=== PATIENT | female | born 1935 | race Caucasian/White ===

== ENCOUNTER 2016-10-26 13:04 | Inpatient (IN) | payer MEDICARE, BC ==
--- NOTE | 2016-10-26 19:16 | PCM.HP ---
History of Present Illness - Chief Complaint Chief Complaint: Deconditioning, CHF, anemia Date: 10/26/16 History of Present Illness: is a 81 year old female. who has had multiple admissions in the last 1 month at [facility] with a recent prolonged hospital stay at [facility] for CHF exacerbation with acute on chronic anemia and chronic respiratory failure due to the CHF with fluid overload. She was profoundly weak and prior to this had been living at home independently. She has been progressively worsening over the last month or more and has been following with Dr. Amado Lopez last echo was in his office last month with report of heart "weak" and not pumping well and she was hospitalized for the fluid overload. She currently is still very weak and feels her abdomen is filling up with fluid since they switched her meds 2 days ago at the hospital. She got an iron infusion prior to transfer they had concern for GI bleeding and have held her anticoagulation. She is following with nephrology for her anemia but her last renal function looked good with creatine of 0.6 prior to her discharge. - Review of Systems Constitutional: Fatigue, Malaise, Weakness, No Fever, No Chills Eyes: No Symptoms Ears, Nose, & Throat: No Symptoms Respiratory: Short Of Breath, No Cough Cardiac: Edema, PND, No Chest Pain, No Syncope Abdominal/Gastrointestinal: No Abdominal Pain, No Nausea, No Vomiting, No Diarrhea Genitourinary Symptoms: No Dysuria Musculoskeletal: Arthralgias, Back Pain, No Neck Pain Skin: No Rash Neurological: No Dizziness, No Focal Weakness, No Sensory Changes Psychological: No Symptoms Endocrine: No Symptoms Hematologic/Lymphatic: No Symptoms Immunological/Allergic: No Symptoms Medications & Allergies Home Medications: Home Medication List Albuterol/Ipratropium 3ml Neb* [DUONEB 0.5-3 MG/3 ml Neb] 3 ml IH TID [History Confirmed 10/26/16] Alprazolam [Xanax 0.5 mg] 0.5 mg PO BID 10/26/16 [History Confirmed 10/26/16] Amlodipine Besylate 5 mg [Norvasc 5 mg] 5 mg PO BID 10/26/16 [History Confirmed 10/26/16] Aspirin [Aspirin EC] 81 mg PO DAILY 10/26/16 [History Confirmed 10/26/16] Bumetanide 1 mg [Bumex 1 mg] 2 mg PO DAILY 10/26/16 [History Confirmed ] Epoetin Fausto [Epogen] 10,000 unit IJ 3XW 10/26/16 [History Confirmed 10/26/16] Famotidine 20 mg [Pepcid 20 MG] 40 mg PO BID 10/26/16 [History Confirmed 10/26/16] Gabapentin [Neurontin] 200 mg PO HS 10/26/16 [History Confirmed 10/26/16] Hydrocodone Bit/Acetaminophen [[place] 5/325Mg] 1 tab PO Q4H PRN 10/26/16 [ History Confirmed 10/26/16] Levothyroxine Sodium [Synthroid] 25 mcg PO DAILY 10/26/16 [History Confirmed ] Metoprolol Tartrate 25 mg [Lopressor 25MG Tab] 25 mg PO BID 10/26/16 [ History Confirmed 10/26/16] Nitroglycerin 0.4 mg/Hr [Nitro-Dur 0.4 MG/HR] 0.4 mg TD DAILY 10/26/16 [ History Confirmed 10/26/16] PANTOPRAZOLE 40 mg Tablet [Protonix 40MG Tablet] 40 mg PO DAILY 10/26/16 [ History Confirmed 10/26/16] Ranolazine 500 MG [Ranexa 500 MG] 1,000 mg PO BID 10/26/16 [History Confirmed 10/26/16] Spironolactone 25 mg [Aldactone 25 MG] 25 mg PO DAILY 10/26/16 [History Confirmed 10/26/16] Sucralfate 1 gm [Carafate 1 GM] 1 tab PO DAILY 10/26/16 [History Confirmed 10/26/16] Valsartan/Hydrochlorothiazide [Diovan Hct 160-12.5 mg Tab] 1 each PO BID [History Confirmed 10/26/16] Allergies/Adverse Reactions: Allergies Allergy/AdvReac Type Severity Reaction Status Date / Time No Known Drug Allergies Allergy Verified 10/26/16 18:46 - Past Medical History Past Medical History: Yes Neurological History: Migraines, Peripheral Neuropathy, Stroke, TIA ENT History: Cataracts Cardiac History: Arrhythmia, Congestive Heart Failure, Coronary Artery Disease, High Cholesterol, Hypertension, Myocardial Infarction (NH), Other Respiratory History: CHF, Pneumonia Endocrine Medical History: Diabetes Type II, Hypothyroidism Musculoskelatal History: Osteoarthritis GI Medical History: GERD, Hernia History: Other Pyscho-Social History: No Pertinent History Reproductive Disorders: Other Comment: rt kidney aneurysm; 4 heart stents - Past Surgical History Past Surgical History: Yes Neuro Surgical History: No Pertinent History Cardiac History: Cardiac Catheterization, Cardiac Stent GI Surgical History: Appendectomy, Cholecystectomy, Hernia Repair Genitourinary Surgical Hx: No Pertinent History Musculskeletal Surgical Hx: Joint Replacement Female Surgical History: Hysterectomy Other Surgical History: LEFT KNEE; 11 hernia repairs - Social History Smoking Status: Never smoker Exposure to second hand smoke: No Alcohol: None Drug Use: none - Physical Exam General Appearance: alert, obese Neurologic Exam: alert, oriented x 3, cooperative, normal mood/affect, nml cerebellar function, nml station & gait, sensation nml, No motor deficits Eye Exam: PERRL/EOMI, eyes nml inspection Ears, Nose, Throat Exam: normal ENT inspection, TMs normal, pharynx normal, moist mucous membranes Neck Exam: normal inspection, non-tender, supple, full range of motion Respiratory Exam: normal breath sounds, lungs clear, No respiratory distress Cardiovascular Exam: regular rate/rhythm, normal heart sounds, normal peripheral pulses, murmur Gastrointestinal/Abdomen Exam: soft, normal bowel sounds, distention (fluid wave present), No tenderness, No mass Back Exam: normal inspection, normal range of motion, No CVA tenderness, No vertebral tenderness Extremity Exam: normal inspection, normal range of motion, pelvis stable Skin Exam: normal color, warm, dry, pale, No rash Lymphatic Exam: No adenopathy Assessment/Plan (1) Chronic systolic (congestive) heart failure Current Visit: Yes Status: Acute Assessment & Plan: she is still symptomatic and her overload appears to may be be worsening fluid restriction salt restriction discussed work on follow i and o diuretics 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 she Follows with Alex Gómez and Dr. Amado Lopez as outpatient Code(s): I50.22 - CHRONIC SYSTOLIC (CONGESTIVE) HEART FAILURE (2) Generalized weakness Current Visit: Yes Status: Acute Code(s): R53.1 - WEAKNESS (3) Volume overload Current Visit: Yes Status: Acute Code(s): E87.70 - FLUID OVERLOAD, UNSPECIFIED (4) Anemia Current Visit: Yes Status: Acute Code(s): D64.9 - ANEMIA, UNSPECIFIED (5) Hypertension Current Visit: Yes Status: Acute Code(s): I10 - ESSENTIAL (PRIMARY) HYPERTENSION (6) Diabetes Current Visit: Yes Status: Acute Code(s): E11.9 - TYPE 2 DIABETES MELLITUS WITHOUT COMPLICATIONS (7) Coronary arteriosclerosis Current Visit: Yes Status: Acute (8) Chronic respiratory failure Current Visit: Yes Status: Acute Code(s): J96.10 - CHRONIC RESPIRATORY FAILURE, UNSP W HYPOXIA OR HYPERCAPNIA (9) Afib Current Visit: Yes Status: Acute Code(s): I48.91 - UNSPECIFIED ATRIAL FIBRILLATION (10) GERD (gastroesophageal reflux disease) Current Visit: Yes Status: Acute Code(s): K21.9 - GASTRO-ESOPHAGEAL REFLUX DISEASE WITHOUT ESOPHAGITIS
[2016-10-26] MEDS: NORCO 5/325 MG PO PRN (21:56)
[2016-10-26] MEDS: Neurontin 100 MG PO SCH (21:57)
[2016-10-26] MEDS: xanAX 0.5 MG PO SCH (21:57)
[2016-10-26] MEDS: NORVASC 5 MG PO SCH (21:57)
[2016-10-26] MEDS: Pepcid 20 MG PO SCH (21:57)
[2016-10-26] MEDS: Lopressor 25MG Tab PO SCH (21:58)
[2016-10-26] MEDS: Ranexa 500 MG PO SCH (21:58)
[2016-10-26] MEDS ORDERED: DIOVAN PO SCH ×2 (22:00)
[2016-10-26] MEDS ORDERED: HYDRODIURIL PO SCH ×2 (22:00)
[2016-10-27] MEDS ORDERED: DUONEB 0.5-3 MG/3 ml Neb IH SCH (07:00)
[2016-10-27] MEDS ORDERED: Nitro-Dur 0.4 MG/HR TD PRN (08:00)
[2016-10-27] MEDS ORDERED: DUONEB 0.5-3 MG/3 ml Neb IH PRN (09:14)
[2016-10-27] MEDS: Ranexa 500 MG PO SCH ×2 (09:37→22:29)
[2016-10-27] MEDS: DIOVAN 80 MG PO SCH ×2 (09:38→22:30)
[2016-10-27] MEDS: xanAX 0.5 MG PO SCH ×2 (09:38→22:50)
[2016-10-27] MEDS: NORVASC 5 MG PO SCH ×2 (09:38→22:29)
[2016-10-27] MEDS: hydroDIURIL 25 MG PO SCH ×2 (09:39→22:30)
[2016-10-27] MEDS: Pepcid 20 MG PO SCH ×3 (09:39→22:29)
[2016-10-27] MEDS: Lopressor 25MG Tab PO SCH ×2 (09:39→22:29)
[2016-10-27] MEDS: ECOTRIN 81 MG PO SCH (09:47)
[2016-10-27] MEDS: Carafate 1 GM PO SCH (09:47)
[2016-10-27] MEDS: SYNTHROID 25 MCG PO SCH (09:47)
[2016-10-27] MEDS: BUMEX 1 MG PO SCH (09:47)
[2016-10-27] MEDS: Aldactone 25 MG PO SCH (09:48)
[2016-10-27] MEDS: Protonix 40MG Tablet PO SCH (09:48)
[2016-10-27] MEDS ORDERED: PREVNAR 13 SYRINGE IM ONE (10:00)
[2016-10-27] MEDS ORDERED: Aplisol ID SCH (10:00)
[2016-10-27] MEDS: Neurontin 100 MG PO SCH (22:29)
[2016-10-28] MEDS: Carafate 1 GM PO SCH (08:15)
[2016-10-28] MEDS: Ranexa 500 MG PO SCH ×2 (09:27→21:23)
[2016-10-28] MEDS: DIOVAN 80 MG PO SCH ×2 (09:27→21:22)
[2016-10-28] MEDS: Aldactone 25 MG PO SCH (09:28)
[2016-10-28] MEDS: hydroDIURIL 25 MG PO SCH ×2 (09:28→21:22)
[2016-10-28] MEDS: ECOTRIN 81 MG PO SCH (09:28)
[2016-10-28] MEDS: Lopressor 25MG Tab PO SCH ×2 (09:28→21:22)
[2016-10-28] MEDS: BUMEX 1 MG PO SCH (09:28)
[2016-10-28] MEDS: xanAX 0.5 MG PO SCH ×2 (09:29→21:24)
[2016-10-28] MEDS: Protonix 40MG Tablet PO SCH (09:29)
[2016-10-28] MEDS: SYNTHROID 25 MCG PO SCH (09:29)
[2016-10-28] MEDS: NORVASC 5 MG PO SCH ×2 (09:29→21:23)
[2016-10-28] MEDS: Pepcid 20 MG PO SCH ×2 (09:29→21:23)
[2016-10-28] MEDS: MILK OF MAGNESIA 30 ML PO PRN (11:44)
[2016-10-28] MEDS: Neurontin 100 MG PO SCH (21:23)
[2016-10-28] MEDS: NORCO 5/325 MG PO PRN (21:24)
[2016-10-29 05:51] LABS: Mean Cell Volume 76.7 fl (78-100); Mean Corpuscular Hemoglobin 21.5 pg (26-32); Mean Platelet Volume 9.9 fl (6-9.5); Platelet Count 177 K/mm3 (150-450); Red Blood Count 3.44 M/mm3 (4.1-5.4); Red Cell Distribution Width 21.4 % (11.5-14.0); White Blood Count 4.6 K/mm3 (4.0-10.5)
[2016-10-29 05:57] LABS: ALBUMIN 3.3 g/dL (3.4-5.0); ALKALINE PHOSPHATASE 60 U/L (46-116); ANION GAP 10.3 MEQ/L (5-15); BILIRUBIN,TOTAL 0.5 mg/dL (0.2-1.0); BLOOD UREA NITROGEN 10 mg/dL (9-20); CHLORIDE 98 mEq/L (98-107); Carbon Dioxide 34.1 mEq/L (21-32); Glucose 87 MG/DL (70-110); Potassium 3.9 mEq/L (3.5-5.1); SGOT/AST 20 U/L (15-37); SGPT/ALT 13 U/L (12-78); SODIUM 139 mEq/L (136-145); Total Protein 6.6 gm/dL (6.4-8.2)
[2016-10-29] MEDS: Carafate 1 GM PO SCH (07:35)
[2016-10-29] MEDS: NORCO 5/325 MG PO PRN ×2 (07:38→21:36)
[2016-10-29] MEDS: DIOVAN 80 MG PO SCH ×2 (09:24→21:38)
[2016-10-29] MEDS: BUMEX 1 MG PO SCH (09:24)
[2016-10-29] MEDS: Pepcid 20 MG PO SCH ×2 (09:25→21:34)
[2016-10-29] MEDS: NORVASC 5 MG PO SCH ×2 (09:26→21:38)
[2016-10-29] MEDS: Aldactone 25 MG PO SCH ×2 (09:26→21:36)
[2016-10-29] MEDS: Ranexa 500 MG PO SCH ×2 (09:27→21:33)
[2016-10-29] MEDS: SYNTHROID 25 MCG PO SCH (09:27)
[2016-10-29] MEDS: Lopressor 25MG Tab PO SCH ×2 (09:28→21:33)
[2016-10-29] MEDS: ECOTRIN 81 MG PO SCH (09:28)
[2016-10-29] MEDS: hydroDIURIL 25 MG PO SCH ×2 (09:28→21:33)
[2016-10-29] MEDS: Protonix 40MG Tablet PO SCH (09:37)
[2016-10-29] MEDS ORDERED: Klor Con 10 MEQ PO ONE (10:00)
[2016-10-29] MEDS ORDERED: Zaroxolyn 2.5 MG PO ONE (10:00)
[2016-10-29] MEDS: xanAX 0.5 MG PO SCH ×2 (16:42→21:38)
[2016-10-29] MEDS: Neurontin 100 MG PO SCH (21:38)
[2016-10-30] MEDS: NORCO 5/325 MG PO PRN ×2 (05:03→21:52)
[2016-10-30] MEDS: Carafate 1 GM PO SCH (07:53)
[2016-10-30] MEDS: Nitro-Dur 0.4 MG/HR TD SCH (07:53)
[2016-10-30] MEDS: hydroDIURIL 25 MG PO SCH ×2 (09:22→21:55)
[2016-10-30] MEDS: Pepcid 20 MG PO SCH ×2 (09:22→21:54)
[2016-10-30] MEDS: DIOVAN 80 MG PO SCH ×2 (09:22→21:54)
[2016-10-30] MEDS: SYNTHROID 25 MCG PO SCH (09:22)
[2016-10-30] MEDS: BUMEX 1 MG PO SCH (09:24)
[2016-10-30] MEDS: NORVASC 5 MG PO SCH ×2 (09:24→21:54)
[2016-10-30] MEDS: Protonix 40MG Tablet PO SCH (09:24)
[2016-10-30] MEDS: Aldactone 25 MG PO SCH ×2 (09:24→21:54)
[2016-10-30] MEDS: Ranexa 500 MG PO SCH ×2 (09:24→21:53)
[2016-10-30] MEDS: ECOTRIN 81 MG PO SCH (09:25)
[2016-10-30] MEDS: Lopressor 25MG Tab PO SCH ×2 (09:25→21:54)
[2016-10-30] MEDS: xanAX 0.5 MG PO SCH ×2 (09:29→21:54)
[2016-10-30] MEDS: Neurontin 100 MG PO SCH (21:54)
[2016-10-31] MEDS: Carafate 1 GM PO SCH (07:55)
[2016-10-31] MEDS: Nitro-Dur 0.4 MG/HR TD SCH (07:55)
[2016-10-31] MEDS: DIOVAN 80 MG PO SCH ×2 (09:52→21:50)
[2016-10-31] MEDS: ECOTRIN 81 MG PO SCH (09:53)
[2016-10-31] MEDS: Protonix 40MG Tablet PO SCH (09:53)
[2016-10-31] MEDS: Ranexa 500 MG PO SCH ×2 (09:53→21:49)
[2016-10-31] MEDS: hydroDIURIL 25 MG PO SCH ×2 (09:53→21:49)
[2016-10-31] MEDS: Lopressor 25MG Tab PO SCH ×2 (09:54→21:49)
[2016-10-31] MEDS: Aldactone 25 MG PO SCH ×2 (09:54→21:50)
[2016-10-31] MEDS: SYNTHROID 50 MCG PO SCH (09:54)
[2016-10-31] MEDS: Pepcid 20 MG PO SCH ×2 (09:54→21:49)
[2016-10-31] MEDS: BUMEX 1 MG PO SCH (09:54)
[2016-10-31] MEDS: NORVASC 5 MG PO SCH ×2 (09:54→21:49)
[2016-10-31] MEDS: xanAX 0.5 MG PO SCH ×2 (09:57→21:50)
[2016-10-31] MEDS: Neurontin 100 MG PO SCH (21:49)
[2016-10-31] MEDS: NORCO 5/325 MG PO PRN (21:50)
[2016-11-01 05:51] LABS: Mean Cell Volume 76.3 fl (78-100); Mean Platelet Volume 9.5 fl (6-9.5); Platelet Count 235 K/mm3 (150-450); Red Blood Count 3.79 M/mm3 (4.1-5.4); Red Cell Distribution Width 22.7 % (11.5-14.0); White Blood Count 4.5 K/mm3 (4.0-10.5)
[2016-11-01 05:52] LABS: Mean Corpuscular Hemoglobin 22.1 pg (26-32)
[2016-11-01 06:09] LABS: ANION GAP 13.4 MEQ/L (5-15); Carbon Dioxide 31.6 mEq/L (21-32); Potassium 3.9 mEq/L (3.5-5.1)
[2016-11-01] MEDS: Nitro-Dur 0.4 MG/HR TD SCH (07:27)
[2016-11-01] MEDS: Carafate 1 GM PO SCH (07:28)
[2016-11-01] MEDS: Protonix 40MG Tablet PO SCH (10:12)
[2016-11-01] MEDS: hydroDIURIL 25 MG PO SCH ×2 (10:13→21:50)
[2016-11-01] MEDS: SYNTHROID 50 MCG PO SCH (10:14)
[2016-11-01] MEDS: Lopressor 25MG Tab PO SCH ×2 (10:14→21:51)
[2016-11-01] MEDS: Aldactone 25 MG PO SCH ×2 (10:14→21:50)
[2016-11-01] MEDS: Ranexa 500 MG PO SCH ×2 (10:15→21:51)
[2016-11-01] MEDS: Pepcid 20 MG PO SCH ×2 (10:15→21:51)
[2016-11-01] MEDS: ECOTRIN 81 MG PO SCH (10:15)
[2016-11-01] MEDS: BUMEX 1 MG PO SCH (10:16)
[2016-11-01] MEDS: DIOVAN 80 MG PO SCH ×2 (10:16→21:50)
[2016-11-01] MEDS: xanAX 0.5 MG PO SCH ×2 (10:20→21:52)
[2016-11-01] MEDS: NORCO 5/325 MG PO PRN (21:51)
[2016-11-01] MEDS: Neurontin 100 MG PO SCH (21:51)
[2016-11-02] MEDS: BUMEX 1 MG PO SCH (07:52)
[2016-11-02] MEDS: Ranexa 500 MG PO SCH ×2 (07:52→21:41)
[2016-11-02] MEDS: Aldactone 25 MG PO SCH ×2 (07:53→21:40)
[2016-11-02] MEDS: hydroDIURIL 25 MG PO SCH ×2 (07:53→21:39)
[2016-11-02] MEDS: Protonix 40MG Tablet PO SCH (07:53)
[2016-11-02] MEDS: Pepcid 20 MG PO SCH ×2 (07:53→21:41)
[2016-11-02] MEDS: DIOVAN 80 MG PO SCH ×2 (07:53→21:41)
[2016-11-02] MEDS: ECOTRIN 81 MG PO SCH (07:53)
[2016-11-02] MEDS: SYNTHROID 50 MCG PO SCH (07:54)
[2016-11-02] MEDS: xanAX 0.5 MG PO SCH ×2 (07:54→21:39)
[2016-11-02] MEDS: Nitro-Dur 0.4 MG/HR TD SCH (07:54)
[2016-11-02] MEDS: Carafate 1 GM PO SCH (07:54)
[2016-11-02] MEDS: Lopressor 25MG Tab PO SCH ×2 (07:54→21:42)
[2016-11-02] MEDS ORDERED: Venofer 100 MG/5 ML IV SCH (14:00)
[2016-11-02] MEDS ORDERED: Venofer 100 MG/5 ML*** 300 MG in Sodium Chloride 0.9% 250 ML 250 ML IV SCH (16:00)
[2016-11-02] MEDS: NORCO 5/325 MG PO PRN ×2 (16:26→21:40)
[2016-11-02] MEDS: MILK OF MAGNESIA 30 ML PO PRN (21:38)
[2016-11-02] MEDS: Neurontin 100 MG PO SCH (21:39)
[2016-11-03] MEDS: Nitro-Dur 0.4 MG/HR TD SCH (08:05)
[2016-11-03] MEDS: Carafate 1 GM PO SCH (08:05)
[2016-11-03] MEDS: Ranexa 500 MG PO SCH ×2 (09:22→21:17)
[2016-11-03] MEDS: SYNTHROID 50 MCG PO SCH (09:23)
[2016-11-03] MEDS: BUMEX 1 MG PO SCH (09:23)
[2016-11-03] MEDS: Aldactone 25 MG PO SCH ×2 (09:23→21:15)
[2016-11-03] MEDS: hydroDIURIL 25 MG PO SCH ×2 (09:23→21:16)
[2016-11-03] MEDS: Lopressor 25MG Tab PO SCH ×2 (09:24→21:17)
[2016-11-03] MEDS: Pepcid 20 MG PO SCH ×2 (09:24→21:17)
[2016-11-03] MEDS: DIOVAN 80 MG PO SCH ×2 (09:24→21:15)
[2016-11-03] MEDS: Protonix 40MG Tablet PO SCH (09:24)
[2016-11-03] MEDS: ECOTRIN 81 MG PO SCH (09:24)
[2016-11-03] MEDS: xanAX 0.5 MG PO SCH ×2 (09:25→21:14)
[2016-11-03] MEDS: Neurontin 100 MG PO SCH (21:15)
[2016-11-03] MEDS: NORCO 5/325 MG PO PRN (21:15)
[2016-11-04] MEDS: NORCO 5/325 MG PO PRN ×4 (02:57→21:54)
[2016-11-04] MEDS: Nitro-Dur 0.4 MG/HR TD SCH (08:10)
[2016-11-04] MEDS: Carafate 1 GM PO SCH (08:10)
[2016-11-04] MEDS: Ranexa 500 MG PO SCH ×2 (09:42→21:55)
[2016-11-04] MEDS: DIOVAN 80 MG PO SCH ×2 (09:42→21:56)
[2016-11-04] MEDS: hydroDIURIL 25 MG PO SCH ×2 (09:42→21:55)
[2016-11-04] MEDS: Pepcid 20 MG PO SCH ×2 (09:43→21:54)
[2016-11-04] MEDS: ECOTRIN 81 MG PO SCH (09:43)
[2016-11-04] MEDS: Lopressor 25MG Tab PO SCH ×2 (09:43→21:55)
[2016-11-04] MEDS: BUMEX 1 MG PO SCH (09:44)
[2016-11-04] MEDS: Aldactone 25 MG PO SCH ×2 (09:44→21:56)
[2016-11-04] MEDS: SYNTHROID 50 MCG PO SCH (09:44)
[2016-11-04] MEDS: Protonix 40MG Tablet PO SCH (09:44)
[2016-11-04] MEDS: xanAX 0.5 MG PO SCH ×2 (09:46→21:56)
[2016-11-04] MEDS: Neurontin 100 MG PO SCH (21:55)
[2016-11-05] MEDS: Nitro-Dur 0.4 MG/HR TD SCH (07:58)
[2016-11-05] MEDS: Carafate 1 GM PO SCH (07:58)
[2016-11-05] MEDS ORDERED: Senokot-S Tablet PO PRN (08:47)
[2016-11-05] MEDS: hydroDIURIL 25 MG PO SCH ×2 (09:21→21:57)
[2016-11-05] MEDS: Aldactone 25 MG PO SCH ×2 (09:22→21:58)
[2016-11-05] MEDS: ECOTRIN 81 MG PO SCH (09:22)
[2016-11-05] MEDS: SYNTHROID 50 MCG PO SCH (09:22)
[2016-11-05] MEDS: Lopressor 25MG Tab PO SCH ×2 (09:22→21:58)
[2016-11-05] MEDS: Protonix 40MG Tablet PO SCH (09:22)
[2016-11-05] MEDS: BUMEX 1 MG PO SCH (09:22)
[2016-11-05] MEDS: DIOVAN 80 MG PO SCH ×2 (09:22→21:58)
[2016-11-05] MEDS: Pepcid 20 MG PO SCH ×2 (09:22→21:59)
[2016-11-05] MEDS: Ranexa 500 MG PO SCH ×2 (09:23→21:57)
[2016-11-05] MEDS: xanAX 0.5 MG PO SCH ×2 (09:23→21:58)
[2016-11-05] MEDS: Neurontin 100 MG PO SCH (21:58)
[2016-11-05] MEDS: NORCO 5/325 MG PO PRN (21:58)
[2016-11-06] MEDS: Nitro-Dur 0.4 MG/HR TD SCH (08:12)
[2016-11-06] MEDS: Carafate 1 GM PO SCH (08:12)
[2016-11-06] MEDS: BUMEX 1 MG PO SCH (09:19)
[2016-11-06] MEDS: Lopressor 25MG Tab PO SCH ×2 (09:19→21:39)
[2016-11-06] MEDS: Protonix 40MG Tablet PO SCH (09:20)
[2016-11-06] MEDS: ECOTRIN 81 MG PO SCH (09:20)
[2016-11-06] MEDS: Aldactone 25 MG PO SCH ×2 (09:20→21:41)
[2016-11-06] MEDS: hydroDIURIL 25 MG PO SCH ×2 (09:20→21:40)
[2016-11-06] MEDS: SYNTHROID 50 MCG PO SCH (09:20)
[2016-11-06] MEDS: Pepcid 20 MG PO SCH ×2 (09:20→21:40)
[2016-11-06] MEDS: DIOVAN 80 MG PO SCH ×2 (09:20→21:40)
[2016-11-06] MEDS: xanAX 0.5 MG PO SCH ×2 (09:21→21:42)
[2016-11-06] MEDS: Ranexa 500 MG PO SCH ×2 (09:22→21:40)
[2016-11-06] MEDS ORDERED: TYLENOL 325 MG PO PRN (16:29)
[2016-11-06] MEDS: Neurontin 100 MG PO SCH (21:40)
[2016-11-06] MEDS: NORCO 5/325 MG PO PRN (21:42)
[2016-11-07] MEDS: Carafate 1 GM PO SCH (07:56)
[2016-11-07] MEDS: Nitro-Dur 0.4 MG/HR TD SCH (07:56)
[2016-11-07] MEDS: BUMEX 1 MG PO SCH (09:05)
[2016-11-07] MEDS: Pepcid 20 MG PO SCH ×2 (09:06→22:13)
[2016-11-07] MEDS: hydroDIURIL 25 MG PO SCH ×2 (09:06→22:12)
[2016-11-07] MEDS: Aldactone 25 MG PO SCH ×2 (09:06→22:13)
[2016-11-07] MEDS: DIOVAN 80 MG PO SCH ×2 (09:06→22:12)
[2016-11-07] MEDS: SYNTHROID 50 MCG PO SCH (09:06)
[2016-11-07] MEDS: Ranexa 500 MG PO SCH ×2 (09:07→22:13)
[2016-11-07] MEDS: ECOTRIN 81 MG PO SCH (09:07)
[2016-11-07] MEDS: Lopressor 25MG Tab PO SCH ×2 (09:07→22:11)
[2016-11-07] MEDS: Protonix 40MG Tablet PO SCH (09:07)
[2016-11-07] MEDS: xanAX 0.5 MG PO SCH ×2 (09:11→22:12)
[2016-11-07] MEDS ORDERED: Aplisol ID SCH (10:00)
[2016-11-07] MEDS: NORCO 5/325 MG PO PRN (22:11)
[2016-11-07] MEDS: Neurontin 100 MG PO SCH (22:12)
[2016-11-08 05:08] LABS: Mean Cell Volume 75.7 fl (78-100); Mean Corpuscular Hemoglobin 22.8 pg (26-32); Mean Platelet Volume 8.8 fl (6-9.5); Platelet Count 277 K/mm3 (150-450); Red Blood Count 4.16 M/mm3 (4.1-5.4); Red Cell Distribution Width 23.1 % (11.5-14.0); White Blood Count 4.7 K/mm3 (4.0-10.5)
[2016-11-08] MEDS: Carafate 1 GM PO SCH (08:16)
[2016-11-08] MEDS: Nitro-Dur 0.4 MG/HR TD SCH (08:16)
[2016-11-08] MEDS: Protonix 40MG Tablet PO SCH (09:39)
[2016-11-08] MEDS: BUMEX 1 MG PO SCH (09:39)
[2016-11-08] MEDS: ECOTRIN 81 MG PO SCH (09:39)
[2016-11-08] MEDS: Ranexa 500 MG PO SCH ×2 (09:39→21:37)
[2016-11-08] MEDS: Pepcid 20 MG PO SCH ×2 (09:39→21:39)
[2016-11-08] MEDS: hydroDIURIL 25 MG PO SCH ×2 (09:40→21:38)
[2016-11-08] MEDS: SYNTHROID 50 MCG PO SCH (09:40)
[2016-11-08] MEDS: DIOVAN 80 MG PO SCH ×2 (09:40→21:38)
[2016-11-08] MEDS: Aldactone 25 MG PO SCH ×2 (09:40→21:37)
[2016-11-08] MEDS: Lopressor 25MG Tab PO SCH ×2 (09:40→21:38)
[2016-11-08] MEDS: xanAX 0.5 MG PO SCH ×2 (09:45→21:38)
[2016-11-08 19:35] VITALS: BP 136/63; PULSE 62; O2SAT 98
[2016-11-08] MEDS: Neurontin 100 MG PO SCH (21:37)
[2016-11-08] MEDS: NORCO 5/325 MG PO PRN (21:39)
[2016-11-09 05:40] LABS: ANION GAP 12.1 MEQ/L (5-15); Carbon Dioxide 30.4 mEq/L (21-32); Potassium 4.4 mEq/L (3.5-5.1)
[2016-11-09] MEDS: NORCO 5/325 MG PO PRN (06:19)
[2016-11-09] MEDS: Nitro-Dur 0.4 MG/HR TD SCH (07:38)
[2016-11-09] MEDS: Carafate 1 GM PO SCH (07:39)
[2016-11-09] MEDS ORDERED: Venofer 100 MG/5 ML*** 300 MG in Sodium Chloride 0.9% 250 ML 250 ML IV SCH (08:00)
[2016-11-09] MEDS ORDERED: hydroDIURIL 25 MG PO SCH (10:00)
[2016-11-09] MEDS: ECOTRIN 81 MG PO SCH (10:21)
[2016-11-09] MEDS: Protonix 40MG Tablet PO SCH (10:22)
[2016-11-09] MEDS: BUMEX 1 MG PO SCH (10:22)
[2016-11-09] MEDS: Lopressor 25MG Tab PO SCH (10:23)
[2016-11-09] MEDS: xanAX 0.5 MG PO SCH (10:23)
[2016-11-09] MEDS: DIOVAN 80 MG PO SCH (10:23)
[2016-11-09] MEDS: SYNTHROID 50 MCG PO SCH (10:23)
[2016-11-09] MEDS: Aldactone 25 MG PO SCH (10:23)
[2016-11-09] MEDS: Pepcid 20 MG PO SCH (10:23)
[2016-11-09] MEDS: Ranexa 500 MG PO SCH (10:23)
--- NOTE | 2016-11-09 12:21 | PCM.DS ---
Discharge Summary Date of Admission: 10/26/16 18:09 Date of Discharge: 11/09/2016 Admitting Physician: REGINALD COFFMAN Primary Care Provider: REGINALD COFFMAN Allergies Allergies No Known Drug Allergies Allergy (Verified 10/26/16 18:46) Hospital Summary - Hospital Course Hospital Course: she was admitted for volume overload, chf, ckd and severe anemia to [facility] where she was treated with medical therapy but was extremely deconditioned and was sent to [facility] for Swing Bed rehab. We continued her rehab therapy and continued her diuretics. Her blood pressure medications were adjusted as she was having hypotension and her amlodipine was stopped and the aldactone was increased to bid. this helped her swelling and her bp remained controlled. Her breathing improved drastically and her oxygen requirement lessened. She progressed well with therapy as well. She received iron infusions on Fridays and her hgb responded well increasing by 1 pt per week to 9 at discharge from 7 on presentation. Her mood and energy level was much better. She has home health services set up and is thus set up for discharge to home with continued therapy and follow up for her infusions and follow up with nephrology and cardiology. She did begin to have renal impairment and hyponatremia on the day of discharge from the diuresis and her spironolactone dose was decreased back down to daily. She had been on fluid and salt restrition since arrival this will likely change when she resumes her home diet and will f/u the level next week. - Vitals & Intake/Output Vital Signs: Vital Signs Temperature 97.8 F 11/08/16 19:34 Pulse Rate 62 11/08/16 19:34 Respiratory Rate 18 11/08/16 19:34 Blood Pressure 136/63 11/08/16 19:34 O2 Sat by Pulse Oximetry 98 11/08/16 19:34 Oxygen-Last Documented O2 Percentage 1 Liter = 24% Intake & Output: Intake & Output 11/07/16 11/08/16 11/09/16 11/10/16 11:59 11:59 11:59 11:59 Intake Total 690 629 3312 Output Total 100 Balance 006 614 9408 Weight 78.608 kg 78.925 kg 79.152 kg - Lab Result Diagrams: 11/08/16 04:30 11/09/16 05:13 Lab Results-Last 24 Hrs: Accuchecks Date 11/09/16 Time 07:00 Accucheck Value: 115 Lab Results-Last 24 Hours 11/09/16 Range/Units 05:13 Sodium 127 L (136-145) mEq/L Potassium 4.4 (3.5-5.1) mEq/L Chloride 89 L (98-107) mEq/L Carbon Dioxide 30.4 (21-32) mEq/L Anion Gap 12.1 (5-15) MEQ/L BUN 35 H (9-20) mg/dL Creatinine 1.66 H (0.55-1.30) mg/dl Estimated GFR 32 ML/MIN Glucose 116 H (70-110) MG/DL Calcium 9.7 (8.5-10.1) mg/dL Micro Results-Entire Visit: Accuchecks Date 11/09/16 Time 07:00 Accucheck Value: 115 - Procedures and Test Procedures and Tests throughout Hospitalization: Therapy Orders & Screens 10/26/16 18:21 PT Eval & Treat ( Order) Evaluate: Yes Treat: Yes Reason for Eval:: Deconditioning Diagnosis: Deconditioning r/t pneumonia, CHF, anemia 10/26/16 22:37 Oxygen NASAL CANNULA 3 lpm Comment: O2 TO KEEP SPO2 >92% Diagnosis: Deconditioning, CHF, anemia Respiratory Therapy Consult ROUTINE Comment: Reason For Exam: Diagnosis: Deconditioning, CHF, anemia 10/27/16 09:15 Respiratory Nebulizer PRN Comment: Diagnosis: Deconditioning, CHF, anemia 10/27/16 09:16 Incentive Spirometry Assessmen UD Comment: Diagnosis: Deconditioning, CHF, anemia Discharge Exam General Appearance: no apparent distress, alert Neurologic Exam: alert, oriented x 3, cooperative, normal mood/affect, nml cerebellar function, sensation nml, No motor deficits Skin Exam: normal color, warm, dry Eye Exam: PERRL, EOMI, eyes nml inspection Ears, Nose, Throat Exam: normal ENT inspection, pharynx normal, moist mucous membranes Neck Exam: normal inspection, non-tender, supple, full range of motion Respiratory Exam: normal breath sounds, crackles/rales, No respiratory distress Cardiovascular Exam: regular rate/rhythm, normal heart sounds, murmur Gastrointestinal/Abdomen Exam: soft, No tenderness, No mass Extremity Exam: normal inspection, normal range of motion Back Exam: normal inspection, normal range of motion, No CVA tenderness, No vertebral tenderness Pelvic Exam: deferred Rectal Exam: deferred Final Diagnosis/Problem List - Final Discharge Diagnosis/Problem (1) Chronic systolic (congestive) heart failure Status: Acute (2) Generalized weakness Status: Acute (3) Volume overload Status: Acute (4) Anemia Status: Acute (5) Hypertension Status: Acute (6) Diabetes Status: Acute (7) Coronary arteriosclerosis Status: Acute (8) Chronic respiratory failure Status: Acute (9) Afib Status: Acute (10) GERD (gastroesophageal reflux disease) Status: Acute - Discharge Discharge Date: 11/09/16 Disposition: HOME HEALTH SERVICE Condition: Stable Prescriptions: Continue Hydrocodone Bit/Acetaminophen [[place] 5/325Mg] 1 tab PO Q4H PRN PRN Reason: Pain Nitroglycerin 0.4 mg/Hr [Nitro-Dur 0.4 MG/HR] 0.4 mg TD DAILY Alprazolam [Xanax 0.5 mg] 0.5 mg PO BID Ranolazine 500 MG [Ranexa 500 MG] 1,000 mg PO BID PANTOPRAZOLE 40 mg Tablet [Protonix 40MG Tablet] 40 mg PO DAILY Famotidine 20 mg [Pepcid 20 MG] 40 mg PO BID Gabapentin [Neurontin] 200 mg PO HS Metoprolol Tartrate 25 mg [Lopressor 25MG Tab] 50 mg PO BID Albuterol/Ipratropium 3ml Neb* [DUONEB 0.5-3 MG/3 ml Neb] 3 ml IH TID Valsartan/Hydrochlorothiazide [Diovan Hct 160-12.5 mg Tab] 1 each PO BID Sucralfate 1 gm [Carafate 1 GM] 1 tab PO BID Aspirin [Aspirin EC] 81 mg PO DAILY Glyburide 2.5 mg PO DAILY Cranberry Extract [Cranberry] 500 mg PO DAILY Nitroglycerin 0.4 mg Tablet [Nitrostat 0.4 MG Tablet] 0.4 mg SL Q1H PRN PRN Reason: Chest Pain Spironolactone 25 mg [Aldactone 25 MG] 25 mg PO DAILY #60 Epoetin Fausto [Epogen] 10,000 unit IJ 3XW #0 Iron Sucrose Complex [Venofer] 300 mg IV WEEKLY #0 Bumetanide 1 mg [Bumex 1 mg] 2 mg PO DAILY #0 tablet Changed Levothyroxine Sodium [Synthroid] 50 mcg PO DAILY #60 Discontinued Amlodipine Besylate 5 mg [Norvasc 5 mg] 5 mg PO BID Meloxicam 7.5 mg [Mobic 7.5 MG] 15 mg PO DAILY Apixaban [Eliquis] 2.5 mg PO BID Instructions: Heart-Healthy Diet, Heart Failure, Muscle Weakness Additional Instructions: follow up with the [facility] in [place] after discharge. Scheduled for . 113 Records sent to [facility] via fax. pt. is to arrive 15 min. Prior to appt. for paperwork. Chris Lakhani. [facility] WILL CALL YOU TO SCHEDULE YOUR NEXT VISIT. YOU MAY REACH THEM AT EXT [id number]. Follow up with: REGINALD COFFMAN [Primary Care Provider] - 11/16/16 1:00 pm Forms: CHF Discharge Instructions, Patient Portal Information
--- NOTE | 2016-11-09 12:26 | PCM.DCORD ---
- Discharge Discharge Date: 11/09/16 Disposition: HOME HEALTH SERVICE Condition: Stable Prescriptions: Continue Hydrocodone Bit/Acetaminophen [[place] 5/325Mg] 1 tab PO Q4H PRN PRN Reason: Pain Nitroglycerin 0.4 mg/Hr [Nitro-Dur 0.4 MG/HR] 0.4 mg TD DAILY Alprazolam [Xanax 0.5 mg] 0.5 mg PO BID Ranolazine 500 MG [Ranexa 500 MG] 1,000 mg PO BID PANTOPRAZOLE 40 mg Tablet [Protonix 40MG Tablet] 40 mg PO DAILY Famotidine 20 mg [Pepcid 20 MG] 40 mg PO BID Gabapentin [Neurontin] 200 mg PO HS Metoprolol Tartrate 25 mg [Lopressor 25MG Tab] 50 mg PO BID Albuterol/Ipratropium 3ml Neb* [DUONEB 0.5-3 MG/3 ml Neb] 3 ml IH TID Valsartan/Hydrochlorothiazide [Diovan Hct 160-12.5 mg Tab] 1 each PO BID Sucralfate 1 gm [Carafate 1 GM] 1 tab PO BID Bumetanide 1 mg [Bumex 1 mg] 2 mg PO DAILY Aspirin [Aspirin EC] 81 mg PO DAILY Glyburide 2.5 mg PO DAILY Cranberry Extract [Cranberry] 500 mg PO DAILY Nitroglycerin 0.4 mg Tablet [Nitrostat 0.4 MG Tablet] 0.4 mg SL Q1H PRN PRN Reason: Chest Pain Spironolactone 25 mg [Aldactone 25 MG] 25 mg PO DAILY #60 Epoetin Fausto [Epogen] 10,000 unit IJ 3XW #0 Iron Sucrose Complex [Venofer] 300 mg IV WEEKLY #0 Changed Levothyroxine Sodium [Synthroid] 50 mcg PO DAILY #60 Discontinued Amlodipine Besylate 5 mg [Norvasc 5 mg] 5 mg PO BID Meloxicam 7.5 mg [Mobic 7.5 MG] 15 mg PO DAILY Apixaban [Eliquis] 2.5 mg PO BID Additional Instructions: follow up with the [facility] in [place] after discharge. Scheduled for 1129 Records sent to [facility] via fax. pt. is to arrive 15 min. Prior to appt. for paperwork. Chris Lakhani. [facility] WILL CALL YOU TO SCHEDULE YOUR NEXT VISIT. YOU MAY REACH THEM AT EXT [id number]. Follow up with: REGINALD COFFMAN [Primary Care Provider] - 11/16/16 1:00 pm Forms: Patient Portal Information
== END 2016-11-09 15:10 | disposition home health service (06) | DRG 292 ==
LOC: MED SURG 18:09
PROVIDERS: ADMIT Family Medicine; ATTEND Family Medicine
DX: I50.22 Chronic systolic (congestive) heart failure (principal); J96.10 Chronic respiratory failure, unspecified whether with hypoxia or hypercapnia; R53.1 Weakness; D64.9 Anemia, unspecified; E11.9 Type 2 diabetes mellitus without complications; I12.9 Hypertensive chronic kidney disease with stage 1 through stage 4 chronic kidney disease, or unspecified chronic kidney disease; N18.9 Chronic kidney disease, unspecified; I25.10 Atherosclerotic heart disease of native coronary artery without angina pectoris; I48.91 Unspecified atrial fibrillation; E03.9 Hypothyroidism, unspecified; K21.9 Gastro-esophageal reflux disease without esophagitis; M19.90 Unspecified osteoarthritis, unspecified site; Z79.899 Other long term (current) drug therapy; G62.9 Polyneuropathy, unspecified; Z86.73 Personal history of transient ischemic attack (TIA), and cerebral infarction without residual deficits; I25.2 Old myocardial infarction
CPT/HCPCS: 36415; 80048; 80053; 82962; 83036; 84443; 85027; 90670; 94760; 94761; G0009; J1756